=== PATIENT | male | born 1940 | race Caucasian/White ===

== ENCOUNTER → 2017-11-10 13:56 | Outpatient (REF) | payer MEDICARE, SELFPAY | LOC: LAB 13:56 | PROVIDERS: Visit Provider Podiatrist | DX: B35.1 Tinea unguium (principal) | CPT/HCPCS: 87102; 87206; 87220 ==

== ENCOUNTER → 2018-07-04 14:22 | Outpatient (CLI) | payer MEDICARE, SELFPAY ==
[2018-07-04 15:56] LABS: Alanine Aminotransferase 27 U/L (12-78); Albumin Level 3.5 gm/dL (3.4-5.0); Alkaline Phosphatase 73 U/L (46-116); Aspartate Amino Transferase 31 U/L (15-37); Bilirubin,Direct 0.1 mg/dL (0.0-0.2); Bilirubin,Indirect 0.3 mg/dL (0.0-0.9); Bilirubin,Total 0.4 mg/dL (0.2-1.0); Total Protein,Serum 6.8 gm/dL (6.4-8.2)
== END ==
PROVIDERS: Visit Provider Podiatrist
DX: B35.1 Tinea unguium (principal)
CPT/HCPCS: 36415; 80076

== ENCOUNTER → 2018-08-24 13:24 | Outpatient (CLI) | payer MEDICARE, SELFPAY ==
[2018-08-24 14:55] LABS: Alanine Aminotransferase 32 U/L (12-78); Albumin Level 3.6 gm/dL (3.4-5.0); Albumin/Globulin Ratio 1.1 (1.1-1.8); Alkaline Phosphatase 69 U/L (46-116); Anion Gap 10.6 mEq/L (5-15); Aspartate Amino Transferase 35 U/L (15-37); Bilirubin,Total 0.4 mg/dL (0.2-1.0); Blood Urea Nitrogen 19 mg/dL (7-18); Calcium 9.3 mg/dL (8.5-10.1); Carbon Dioxide 32 mmol/L (21.0-32.0); Chloride 107 mmol/L (98-107); Creatinine,Serum 1.04 mg/dL (0.70-1.30); Estimated Glomerular Filt Rate 69 ml/min (>60); GFR (African American) 83 ML/MIN (>60); Globulin 3.2 gm/dl (1.3-3.2); Glucose 62 mg/dL (74-106); Potassium 4.6 mmoL/L (3.5-5.1); Sodium 145 mmol/L (136-145); Total Protein,Serum 6.8 gm/dL (6.4-8.2)
== END ==
PROVIDERS: Visit Provider Podiatrist
DX: B35.1 Tinea unguium (principal); B35.3 Tinea pedis
CPT/HCPCS: 36415; 80053

== ENCOUNTER → 2018-12-19 10:28 | Outpatient (CLI) | payer MEDICARE, SELFPAY ==
[2018-12-19 12:44] LABS: Alanine Aminotransferase 39 U/L (12-78); Albumin Level 3.7 gm/dL (3.4-5.0); Albumin/Globulin Ratio 1.1 (1.1-1.8); Alkaline Phosphatase 75 U/L (46-116); Anion Gap 11.3 mEq/L (5-15); Aspartate Amino Transferase 37 U/L (15-37); Bilirubin,Total 0.7 mg/dL (0.2-1.0); Blood Urea Nitrogen 19 mg/dL (7-18); Calcium 9.7 mg/dL (8.5-10.1); Carbon Dioxide 32 mmol/L (21.0-32.0); Chloride 103 mmol/L (98-107); Creatinine,Serum 1.02 mg/dL (0.70-1.30); Estimated Glomerular Filt Rate 70 ml/min (>60); GFR (African American) 85 ML/MIN (>60); Globulin 3.3 gm/dl (1.3-3.2); Glucose 89 mg/dL (74-106); Potassium 5.3 mmoL/L (3.5-5.1); Sodium 141 mmol/L (136-145)
== END ==
PROVIDERS: Visit Provider Podiatrist
DX: B35.1 Tinea unguium (principal)
CPT/HCPCS: 36415; 80053

== ENCOUNTER → 2019-03-20 10:41 | Outpatient (CLI) | payer MEDICARE, SELFPAY ==
[2019-03-20 13:42] LABS: Alanine Aminotransferase 29 U/L (12-78); Albumin Level 3.7 gm/dL (3.4-5.0); Albumin/Globulin Ratio 1.1 (1.1-1.8); Alkaline Phosphatase 75 U/L (46-116); Anion Gap 9.7 mEq/L (5-15); Aspartate Amino Transferase 34 U/L (15-37); Bilirubin,Total 0.4 mg/dL (0.2-1.0); Blood Urea Nitrogen 21 mg/dL (7-18); Calcium 9.7 mg/dL (8.5-10.1); Carbon Dioxide 33 mmol/L (21.0-32.0); Chloride 104 mmol/L (98-107); Creatinine,Serum 0.95 mg/dL (0.70-1.30); Estimated Glomerular Filt Rate 76 ml/min (>60); GFR (African American) 92 ML/MIN (>60); Globulin 3.4 gm/dl (1.3-3.2); Glucose 67 mg/dL (74-106); Potassium 4.7 mmoL/L (3.5-5.1); Sodium 142 mmol/L (136-145); Total Protein,Serum 7.1 gm/dL (6.4-8.2)
== END ==
PROVIDERS: Visit Provider Podiatrist
DX: B35.1 Tinea unguium (principal)
CPT/HCPCS: 36415; 80053

== ENCOUNTER → 2019-08-31 07:53 | Outpatient (CLI) | payer SELFPAY ==
--- NOTE | 2019-08-31 08:04 | CT_ITS ---
PROCEDURE: CT HEART W CALCIUM SCORE CLINICAL HISTORY: SCREENING Family history of heart disease COMPARISON: No exams were available for comparison TECHNIQUE: Axial images obtained with sagittal and coronal reformats. All CT scans at the facility use one or more dose reduction, viz: automated exposure control, ma/kV adjustment per patient size (including targeted exams where dose is matched to indication, i.e. head), or iterative reconstruction technique. FINDINGS: Coronary artery calcium score is 39 indicating mild plaque burden with moderate cardiovascular disease risk. Incidental findings include some scarring in the lung bases and evidence of old granulomatous disease IMPRESSION: Mild plaque burden with moderate cardiovascular disease risk Dictated by: Yogesh Martines MD 08/31/2019 14:49 Electronically signed by Yogesh Martines MD in [place] 08/31/2019 14:49
== END ==
PROVIDERS: PCP Family Medicine; Visit Provider Internal Medicine Cardiovascular Disease
DX: Z13.6 Encounter for screening for cardiovascular disorders (principal)
CPT/HCPCS: 75571

== ENCOUNTER 2020-01-21 15:52 | Emergency (ER) | payer MEDICARE, SELFPAY ==
--- NOTE | 2020-01-21 15:55 | INFXCTL.NOTE ---
pt [place] eyes irrigated upon arrival to ED per vivienne shine
[2020-01-21 16:13] VITALS: BP 114/72; PULSE 69; RESP 18; TEMP 37.2; O2SAT 98; BMI 19.5
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
--- NOTE | 2020-01-21 17:45 | PC.NURSE ---
visual acuity 20/50 in [place] eyes with corrective glasses on notified ER
[2020-01-21 18:37] VITALS: BP 152/74; PULSE 78; RESP 16; TEMP 36.6; O2SAT 98
== END 2020-01-21 18:38 | disposition home or self-care (01) ==
PROVIDERS: Emergency Provider Emergency Medicine
DX: T26.62XA Corrosion of cornea and conjunctival sac, left eye, initial encounter (principal); Z57.4 Occupational exposure to toxic agents in agriculture; T60.3X1A Toxic effect of herbicides and fungicides, accidental (unintentional), initial encounter; Y92.73 Farm field as the place of occurrence of the external cause; J44.9 Chronic obstructive pulmonary disease, unspecified; E78.5 Hyperlipidemia, unspecified; I10 Essential (primary) hypertension; E03.9 Hypothyroidism, unspecified; Z79.899 Other long term (current) drug therapy
CPT/HCPCS: 99281

== ENCOUNTER → 2020-03-13 13:24 | Outpatient (CLI) | payer MEDICARE, SELFPAY ==
[2020-03-13 15:06] LABS: Blood Urea Nitrogen 20 mg/dl (9-20); Estimated Glomerular Filt Rate 81 ml/min (>60); GFR (African American) 98 ML/MIN (>60)
== END ==
PROVIDERS: Visit Provider Otolaryngology
DX: Z01.818 Encounter for other preprocedural examination (principal)
CPT/HCPCS: 36415; 82565; 84520

== ENCOUNTER → 2020-03-14 08:32 | Outpatient (CLI) | payer MEDICARE, SELFPAY ==
--- NOTE | 2020-03-14 | MR_ITS ---
PROCEDURE: MR HEAD/BRAIN WO/W CON CLINICAL INDICATION: TINNITUS pt. c/o hearing loss in rt ear that has progressivly gotten worse. COMPARISON: CT HDWO CT HEAD W/O CONTRAST from 10/06/2016 TECHNIQUE: Routine multiplanar multi echo sequences are performed without gadolinium enhancement. FINDINGS: No midline shift, mass effect, intracranial hemorrhage, or hydrocephalus is evident. No evidence of acute infarction. There is generalized atrophy with mild prominence of the lateral ventricles consistent with ex vacuo dilatation. The cerebellopontine angle, cerebellum, and brainstem have an unremarkable appearance. There are few T2 white matter hyperintensities nonspecific. In the right aspect of the pituitary fossa there is a irregular 6 mm area of increased FLAIR signal. This is isointense on T1 and T2. Small pituitary nodule is a consideration. Repeat MRI with out and with enhancement with pituitary protocol may provide further evaluation if clinically warranted.. No mastoid effusion or sinus air-fluid level. The corpus callosum optic chiasm and craniocervical junction have an unremarkable appearance. IMPRESSION: 1. No acute intracranial findings. 2. Atrophy with minimal periventricular ischemic gliotic change. 3. Irregular 6 mm area of increased FLAIR signal in the right aspect of the pituitary fossa possibly due to a small pituitary nodule. This may be better evaluated with pituitary exam without and with dynamic enhancement if clinically desired. Dictated by: Yogesh Martines MD 03/15/2020 13:50 Yogesh Martines MD in [place] 03/15/2020 13:50
== END ==
PROVIDERS: Visit Provider Otolaryngology
DX: H93.13 Tinnitus, bilateral (principal)
CPT/HCPCS: 70553; A9576

== ENCOUNTER → 2020-04-03 10:27 | Outpatient (CLI) | payer MEDICARE, SELFPAY ==
[2020-04-03 11:55] LABS: Blood Urea Nitrogen 27 mg/dl (9-20); Estimated Glomerular Filt Rate 64 ml/min (>60); GFR (African American) 78 ML/MIN (>60)
== END ==
PROVIDERS: Visit Provider Family Medicine
DX: Z01.818 Encounter for other preprocedural examination (principal); E23.7 Disorder of pituitary gland, unspecified
CPT/HCPCS: 36415; 82565; 84520

== ENCOUNTER → 2020-04-04 08:51 | Outpatient (CLI) | payer MEDICARE, SELFPAY ==
--- NOTE | 2020-04-04 | MR_ITS ---
PROCEDURE: MR HEAD/BRAIN WO/W CON CLINICAL INDICATION: ABNORMAL MRI BRAIN Pituitary nodule, hearing loss COMPARISON: MR MR HEAD/BRAIN WO/W CON from 03/14/2020 TECHNIQUE: Routine multiplanar multi echo sequences are performed without gadolinium enhancement. FINDINGS: No midline shift, mass effect, intracranial hemorrhage, or hydrocephalus. No evidence of acute infarction. There are scattered periventricular and subcortical T2 white matter hyperintensities consistent with ischemic gliotic change from microvascular disease. No enhancing lesions are evident. No definite pituitary nodule is evident. Previously noted area of increased signal in the right aspect of the pituitary may have represented artifact from the underlying clivus. No enhancing lesions are evident. IMPRESSION: Negative MRI of the pituitary. No pituitary mass or nodule evident. Previously noted hyperintensity in the parasellar region on the right may represent signal alteration within the clivus. Dictated by: Yogesh Martines MD 04/08/2020 14:06 Yogesh Martines MD in [place] 04/08/2020 14:06
== END ==
PROVIDERS: PCP Family Medicine; Visit Provider Family Medicine
DX: E23.7 Disorder of pituitary gland, unspecified (principal); R93.0 Abnormal findings on diagnostic imaging of skull and head, not elsewhere classified
CPT/HCPCS: 70553; A9576